=== PATIENT | female | born 2000 ===

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

== ENCOUNTER 2022-03-25 10:22 | Outpatient (CLI) | payer OTHER | END 2022-03-25 10:35 | disposition home or self-care (01) | LOC: RAD 10:22 | PROVIDERS: ATTEND Pediatrics | DX: M95.4 Acquired deformity of chest and rib (principal) ==

== ENCOUNTER 2022-03-29 09:22 | Outpatient (CLI) | payer OTHER | END 2022-03-29 09:32 | disposition home or self-care (01) | LOC: RAD 09:22 | PROVIDERS: ATTEND Pediatrics | DX: M21.869 Other specified acquired deformities of unspecified lower leg (principal); Q67.7 Pectus carinatum ==